=== PATIENT | female | born 2000 | race Caucasian/White ===

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

== ENCOUNTER 2021-07-11 17:31 | Inpatient (IN) | payer MEDICAID ==
[~2021-07-11] VITALS: Ht 160 cm; Wt 53.5 kg
[2021-07-11] MEDS ORDERED: ONDANSETRON HCL 4MG/2ML INJ IV ONE ×2 (17:45→22:00)
[2021-07-11] MEDS ORDERED: SODIUM CHLORIDE 0.9% 1,000 ML IV ONE (17:45)
[2021-07-11 19:56] LABS: HEMATOCRIT. 39.8 % (36.0-48.0); HEMOGLOBIN. 13.5 g/dL (12.0-16.0); MEAN CORPUSCULAR HEMOGLOBIN 28.6 pg (28.0-32.0); MEAN CORPUSCULAR VOLUME 84.1 fL (81.0-99.0); MEAN PLATELET VOLUME 9.4 fl (7.4-10.4); PLATELET 190 x1000/uL (130-400); RED BLOOD CELL COUNT 4.73 mill/uL (4.2-5.4); RED CELL DISTRIBUTION WIDTH 16.2 % (11.6-14.6)
[2021-07-11 20:02] LABS: CHLORIDE 104 mEq/L (98-107)
[2021-07-11 20:25] LABS: B-HCG QUANTITATIVE 67755 mIU/mL (<3)
[2021-07-11 20:31] LABS: PLATELET ESTIMATE NORMAL
[2021-07-11] MEDS: FAMOTIDINE 20MG/2ML VIAL IV SCH (20:40)
[2021-07-12 02:49] LABS: CLARITY URINE CLEAR (CLEAR); COLOR URINE YELLOW (YELLOW); KETONES URINE 4+ (NEGATIVE); LEUKOCYTE ESTERASE URINE NEGATIVE (NEGATIVE); NITRITE URINE NEGATIVE (NEGATIVE); OCCULT BLOOD URINE NEGATIVE (NEGATIVE); PROTEIN URINE 1+ (NEGATIVE); SPECIFIC GRAVITY URINE 1.029 (1.005-1.030)
[2021-07-12 03:09] LABS: *BARBITURATES SCREEN URINE NEGATIVE (NEGATIVE); *BENZODIAZEPINES SCREEN URINE NEGATIVE (NEGATIVE); *COCAINE SCREEN URINE NEGATIVE (NEGATIVE); METHADONE URINE SCREEN NEGATIVE (NEGATIVE); OPIATES URINE SCREEN NEGATIVE (NEGATIVE)
[2021-07-12 03:10] LABS: *AMPHETAMINES SCREEN URINE NEGATIVE (NEGATIVE); PHENCYCLIDINE URINE SCREEN NEGATIVE (NEGATIVE)
[2021-07-12 03:23] LABS: CANNABINOID URINE SCREEN PRESUMTIVE POSITIVE (NEGATIVE)
[2021-07-12] MEDS: LACTATED RINGERS 1,000 ML IV SCH ×3 (05:18→20:16)
[2021-07-12] MEDS: FAMOTIDINE 20MG/2ML VIAL IV SCH (09:11)
[2021-07-12 20:00] VITALS: BP 116/57
[2021-07-12 20:45] VITALS: BP 116/57
[2021-07-12] MEDS: ONDANSETRON HCL 4MG/2ML INJ IV PRN (22:25)
[2021-07-13] VITALS: BP 115/62
[2021-07-13 04:00] VITALS: BP 102/54
[2021-07-13 06:03] LABS: CHLORIDE 107 mEq/L (98-107)
[2021-07-13 06:09] LABS: HEMATOCRIT 33.4 % (36.0-48.0); HEMOGLOBIN 11.3 g/dL (12.0-16.0); MEAN CORPUSCULAR HEMOGLOBIN 28.9 pg (28.0-32.0); MEAN CORPUSCULAR VOLUME 84.9 fL (81.0-99.0); PLATELET 133 x1000/uL (130-400); RED BLOOD CELL COUNT 3.93 mill/uL (4.2-5.4); RED CELL DISTRIBUTION WIDTH 16.2 % (11.6-14.6)
[2021-07-13] MEDS: ONDANSETRON HCL 4MG/2ML INJ IV PRN ×3 (06:43→21:20)
[2021-07-13 08:00] VITALS: BP_SYST 103; BP_SYST 129; BP_DIAS 54; BP_DIAS 92
[2021-07-13] MEDS: FAMOTIDINE 20MG/2ML VIAL IV SCH (08:45)
[2021-07-13] MEDS: LACTATED RINGERS 1,000 ML IV SCH ×3 (08:45→17:09)
[2021-07-13 12:00] VITALS: BP 111/57
[2021-07-13 16:00] VITALS: BP 107/60
[2021-07-13 20:00] VITALS: BP 123/54
[2021-07-14] VITALS: BP 123/70
[2021-07-14] MEDS: LACTATED RINGERS 1,000 ML IV SCH ×5 (00:54→22:40)
[2021-07-14 04:00] VITALS: BP 118/62
[2021-07-14] MEDS: ONDANSETRON HCL 4MG/2ML INJ IV PRN ×3 (04:01→22:36)
[2021-07-14 08:00] VITALS: BP 105/57
[2021-07-14] MEDS: FAMOTIDINE 20MG/2ML VIAL IV SCH (10:02)
[2021-07-14 12:00] VITALS: BP 127/73
[2021-07-14 16:00] VITALS: BP 108/55
[2021-07-14 20:00] VITALS: BP 121/63
[2021-07-15] VITALS: BP 120/63
[2021-07-15 04:00] VITALS: BP 102/59
[2021-07-15] MEDS: LACTATED RINGERS 1,000 ML IV SCH ×3 (06:04→21:22)
[2021-07-15 08:00] VITALS: BP 122/63
[2021-07-15] MEDS ORDERED: FOLIC ACID 1 MG, THIAMINE HCL 100 MG, MVI, ADULT NO.1 10 ML in DEXTROSE 5% WATER 1,000 ML IV ONE (09:00)
[2021-07-15] MEDS: FAMOTIDINE 20MG/2ML VIAL IV SCH (09:29)
[2021-07-15 12:00] VITALS: BP 115/72
[2021-07-15 16:00] VITALS: BP 113/65
[2021-07-15 20:00] VITALS: BP 119/63
[2021-07-15 20:49] LABS: HEMATOCRIT 38.4 % (36.0-48.0); HEMOGLOBIN 12.9 g/dL (12.0-16.0); MEAN CORPUSCULAR HEMOGLOBIN 28.7 pg (28.0-32.0); MEAN CORPUSCULAR VOLUME 85.1 fL (81.0-99.0); PLATELET 167 x1000/uL (130-400); RED BLOOD CELL COUNT 4.51 mill/uL (4.2-5.4)
[2021-07-15 20:50] LABS: CHLORIDE 105 mEq/L (98-107)
[2021-07-16] VITALS: BP_SYST 139; BP_SYST 151; BP_DIAS 73; BP_DIAS 78
[2021-07-16] MEDS: LACTATED RINGERS 1,000 ML IV SCH ×4 (03:09→22:20)
[2021-07-16] MEDS: ONDANSETRON HCL 4MG/2ML INJ IV PRN (03:09)
[2021-07-16 08:00] VITALS: BP 114/68
[2021-07-16] MEDS: PANTOPRAZOLE SODIUM 40 MG/VIAL IV SCH (10:00)
[2021-07-16 12:00] VITALS: BP 102/59
[2021-07-16] MEDS: ONDANSETRON HCL 4MG/2ML INJ IV SCH ×3 (12:58→23:48)
[2021-07-16 16:00] VITALS: BP 116/64
[2021-07-16] MEDS ORDERED: POTASSIUM CHLORIDE INJ 40 MEQ in DEXT 5% WATER 500 ML IV NR (18:30)
[2021-07-16 20:00] VITALS: BP 114/54
[2021-07-17] VITALS: BP 114/63
[2021-07-17 04:00] VITALS: BP 114/61
[2021-07-17] MEDS: ONDANSETRON HCL 4MG/2ML INJ IV SCH (05:27)
[2021-07-17 06:37] LABS: T4 FREE 1.67 ng/dL (0.76-1.46)
[2021-07-17] MEDS ORDERED: ONDA4TAB5 MT (07:52)
[2021-07-17 08:00] VITALS: BP 112/61
[2021-07-17] MEDS: PANTOPRAZOLE SODIUM 40 MG/VIAL IV SCH (09:11)
[2021-07-17 09:18] VITALS: BP 112/61
== END 2021-07-17 11:21 | disposition home or self-care (01) | DRG 566 ==
LOC: ER 17:31 → MICUSO 07-12 03:07 → 8WST 07-12 19:42 → 6EST 07-14 16:29
PROVIDERS: ADMIT Obstetrics & Gynecology; ATTEND Obstetrics & Gynecology
DX: O21.1 Hyperemesis gravidarum with metabolic disturbance (principal); O99.321 Drug use complicating pregnancy, first trimester; F12.10 Cannabis abuse, uncomplicated; Z3A.01 Less than 8 weeks gestation of pregnancy; Z64.0 Problems related to unwanted pregnancy
CPT/HCPCS: 36415; 76700; 76801; 76857; 80053; 80305; 81003; 84132; 84439; 84443; 84481; 84702; 85025; 85027; 99285; C9113; J2405; J3411; J3480; J3490; J7030; J7060; J7070; J7120